=== PATIENT | female | born 1995 | race Two or more races ===

== ENCOUNTER 2022-07-13 12:12 | Outpatient (CLI) | payer OTHER | END 2022-07-13 13:15 | disposition home or self-care (01) | LOC: PRENATAL 12:12 | PROVIDERS: ATTEND Obstetrics & Gynecology Maternal & Fetal Medicine | DX: O36.80X0 Pregnancy with inconclusive fetal viability, not applicable or unspecified (principal); Z3A.14 14 weeks gestation of pregnancy ==

== ENCOUNTER 2022-08-21 16:10 | Outpatient (CLI) | payer OTHER | END 2022-08-21 17:24 | disposition home or self-care (01) | LOC: PRENATAL 16:10 | PROVIDERS: ATTEND Obstetrics & Gynecology Maternal & Fetal Medicine | DX: O35.9XX0 Maternal care for (suspected) fetal abnormality and damage, unspecified, not applicable or unspecified (principal); O35.3XX0 Maternal care for (suspected) damage to fetus from viral disease in mother, not applicable or unspecified; Z3A.20 20 weeks gestation of pregnancy ==

== ENCOUNTER 2022-10-19 13:00 | Outpatient (CLI) | payer OTHER | END 2022-10-19 16:35 | disposition home or self-care (01) | LOC: PRENATAL 13:00 | PROVIDERS: ATTEND Obstetrics & Gynecology Maternal & Fetal Medicine | DX: O26.849 Uterine size-date discrepancy, unspecified trimester (principal); O99.019 Anemia complicating pregnancy, unspecified trimester; Z3A.28 28 weeks gestation of pregnancy ==

== ENCOUNTER 2022-11-16 14:44 | Outpatient (CLI) | payer OTHER | END 2022-11-16 16:02 | disposition home or self-care (01) | LOC: PRENATAL 14:44 | PROVIDERS: ATTEND Obstetrics & Gynecology Maternal & Fetal Medicine | DX: O26.849 Uterine size-date discrepancy, unspecified trimester (principal); O36.8199 Decreased fetal movements, unspecified trimester, other fetus; Z3A.32 32 weeks gestation of pregnancy ==

== ENCOUNTER 2022-12-11 15:31 | Outpatient (CLI) | payer OTHER | END 2022-12-11 17:09 | disposition home or self-care (01) | LOC: PRENATAL 15:31 | PROVIDERS: ATTEND Obstetrics & Gynecology Maternal & Fetal Medicine | DX: O26.849 Uterine size-date discrepancy, unspecified trimester (principal); O36.8199 Decreased fetal movements, unspecified trimester, other fetus; O99.891 Other specified diseases and conditions complicating pregnancy; Z3A.38 38 weeks gestation of pregnancy ==

== ENCOUNTER 2024-12-26 07:45 | Inpatient (IN) | payer OTHER ==
[~2024-12-26] VITALS: Ht 165.1 cm; Wt 4.1 kg
[~2024-12-26 07:45] MED LIST: FOLIC ACID0.8 M1 PO; IBUPROFEN800 MG PO; INTEGRA PLUS C1 EACH PO; PRENATAL TABLE1 EAC1 PO
[2024-12-26 09:39] LABS: URINE APPEARANCE Clear; URINE BILIRRUBIN Negative (NEGATIVE); URINE BLOOD Negative; URINE COLOR Yellow; URINE GLUCOSE Negative (NEGATIVE); URINE KETONE Negative (NEGATIVE); URINE LEUKOCYTE Negative; URINE NITRATE Negative; URINE PROTEIN Negative (NEGATIVE); URINE UROBILINOGEN 0.2 E.U./dl
[2024-12-26 09:41] LABS: URINE BACTERIA 718.3 uL (0.0-1933); URINE EPITHELIAL CELLS 37.6 uL (0.0-38.8); URINE WBC 11.2 uL (0.0-23.2)
[2024-12-26 09:44] LABS: URINE CAST 0.14 uL (0.0-1.40); URINE RBC 0.5 uL (0.0-20.8)
[2024-12-26 09:47] LABS: BASO % 0.3 % (0.1-1.2); EOS # 0.03 (0.04-0.54); EOS % 0.4 % (0.7-7.0); HEMATOCRIT 32.5 % (34.1-44.9); LYMPH # 1.27 (1.18-3.74); MEAN CORPUSCULAR HEMOGLOBIN 31.1 pg (25.6-32.2); MONO # 0.44 (0.24-0.82); MONO % 6.3 % (4.7-12.5); NEUT # 5.19 (1.56-6.13); NEUT % 73.7 % (34.0-71.1); PLATELET COUNT 197 K/uL (163-369); RED BLOOD COUNT 3.54 M/uL (3.93-5.22); RED CELL DISTRIBUTION WIDTH 12.3 % (11.6-14.4)
[2024-12-26 10:16] LABS: INR 0.94; PROTHROMBIN TIME 10.3 SECONDS (9.0-11.5)
[2024-12-26 10:37] LABS: ALBUMIN 2.6 gm/dL (3.4-5.0); BILIRUBIN TOTAL 0.33 mg/dL (0.3-1.2); CALCIUM 8.4 mg/dL (8.5-10.1); CREATININE SERUM 0.5 mg/dL (0.55-1.02); GFR 145.87; POTASSIUM 3.98 mEq/L (3.5-5.1); TOTAL PROTEIN 6.6 gm/dL (6.4-8.2)
[2024-12-26 10:58] LABS: PARTIAL THROMBOPLASTIN TIME 46.4 SECONDS (22.0-34.0)
[2024-12-29 12:12] VITALS: BP 129/86
[2024-12-29] MEDS ORDERED: CEFAZOLIN SODIUM 1,000 MG VIAL ONE (14:47)
[2024-12-29] MEDS ORDERED: OXYTOCIN 10 UNITS/ML VIAL ONE (14:49)
[2024-12-29] MEDS ORDERED: ERYTHROMYCIN BASE OPHT 1GM EACH TUBE OP ONE (14:50)
[2024-12-29] MEDS ORDERED: MORPHINE SULFATE 4 MG/ML VIAL IV SCH (18:30)
[2024-12-29 20:42] VITALS: BP 116/78
[2024-12-29 23:58] VITALS: BP 111/68
[2024-12-30 03:32] LABS: BASO % 0.1 % (0.1-1.2); EOS # 0.01 (0.04-0.54); EOS % 0.1 % (0.7-7.0); HEMOGLOBIN 10.4 g/dL (11.2-15.7); LYMPH # 1.18 (1.18-3.74); LYMPH % 13.1 % (19.3-53.1); MEAN CORPUSCULAR HEMOGLOBIN 31.7 pg (25.6-32.2); MONO # 0.46 (0.24-0.82); MONO % 5.1 % (4.7-12.5); NEUT # 7.31 (1.56-6.13); NEUT % 81.2 % (34.0-71.1); PLATELET COUNT 166 K/uL (163-369); RED BLOOD COUNT 3.28 M/uL (3.93-5.22); RED CELL DISTRIBUTION WIDTH 12.4 % (11.6-14.4)
[2024-12-30] MEDS ORDERED: OxyCODONE HCL 5 MG TABLET (ROXICODONE) PO SCH ×2 (07:00→14:00)
[2024-12-30] MEDS ORDERED: ACETAMINOPHEN 325 MG TABLET PO SCH ×2 (07:00→14:00)
[2024-12-30 08:51] VITALS: BP 124/85
[2024-12-30] MEDS ORDERED: DOCUSATE SODIUM 100MG CAP PO SCH (09:00)
[2024-12-30] MEDS ORDERED: SIMETHICONE 125 MG CAPSULE PO SCH (09:00)
[2024-12-30 15:43] VITALS: BP 128/86
[2024-12-30] MEDS ORDERED: KETOROLAC TROMETHAMINE 60 MG VIAL IM STA (17:04)
[2024-12-30] MEDS ORDERED: OxyCODONE HCL 5 MG TABLET (ROXICODONE) PO PRN (17:05)
[2024-12-30] MEDS ORDERED: ACETAMINOPHEN 325 MG TABLET PO PRN (17:05)
[2024-12-31] VITALS: BP 123/83
[2024-12-31 08:30] VITALS: BP 127/85
[2024-12-31] MEDS ORDERED: ORPHENADRINE CITRATE 30 MG/ML AMPUL IM STA (11:59)
[2024-12-31] MEDS ORDERED: KETOROLAC TROMETHAMINE 60 MG VIAL IM STA (11:59)
== END 2024-12-31 13:56 | disposition home or self-care (01) | DRG 788 ==
LOC: LDR 12-29 07:45 → O/R 12-29 14:28 → LDR 12-29 18:15 → OB/GYN 12-29 18:31
PROVIDERS: ADMIT Specialist; ATTEND Specialist
PROC: 4A1HXCZ Monitoring of Products of Conception, Cardiac Rate, External Approach (ICD-10-PCS; 2024-12-29)
PROC: 10D00Z1 Extraction of Products of Conception, Low, Open Approach (ICD-10-PCS; principal; 2024-12-29 18:15)
DX: O36.63X0 Maternal care for excessive fetal growth, third trimester, not applicable or unspecified (principal); O34.211 Maternal care for low transverse scar from previous cesarean delivery; Z3A.39 39 weeks gestation of pregnancy; Z37.0 Single live birth